=== PATIENT | female | born 1965 | race Caucasian/White ===

== ENCOUNTER → 2017-03-04 | Outpatient (CLI) | payer BC, OTHER ==
[~2017-03-04] MED LIST: COLACE100 MG PO; IRON325 PO; METHERGINE PO; MOTRIN100 M1 PO; NOHOMEMEDICATIONS; NORCO 5-325 TA1 EACH PO; NORFLEX100 MG PO; NUVARING VAGIN1 EACH VG; SYNTHROID150 MCG PO
== END ==
LOC: RAD 10:18
DX: Z12.31 Encounter for screening mammogram for malignant neoplasm of breast (principal)

== ENCOUNTER → 2018-03-30 | Outpatient (CLI) | payer BC, OTHER | LOC: RAD 01:52 | DX: Z12.31 Encounter for screening mammogram for malignant neoplasm of breast (principal); E03.9 Hypothyroidism, unspecified ==